=== PATIENT | female | born 1985 | race Caucasian/White ===

== ENCOUNTER 2018-06-27 15:12 | Observation (INO) | payer BC ==
[2018-06-27] MEDS ORDERED: IV RINGERS,LACTATED 1000ML 1,000 ML IV SCH (16:31)
[2018-06-27 16:40] LABS: BILIRUBIN,URINE NEGATIVE (NEG); CLARITY,URINE CLOUDY; COLOR,URINE YELLOW; NITRITE,URINE NEGATIVE (NEG); PROTEIN,URINE 30 mg/dL (NEG-TRACE); UROBILINOGEN,URINE 0.2 mg/dL (0.2 mg/dL)
[2018-06-27 16:49] LABS: BACTERIA,URINE MANY /HPF (0-FEW); RBC,URINE TNTC /HPF (0-2); SQUAMOUS EPITHELIAL CELL,UR MANY /LPF
== END 2018-06-27 17:30 | disposition home or self-care (01) ==
LOC: 3 SO LND 15:12
PROVIDERS: ADMIT Obstetrics & Gynecology; ATTEND Obstetrics & Gynecology
DX: O46.93 Antepartum hemorrhage, unspecified, third trimester (principal); Z3A.39 39 weeks gestation of pregnancy
CPT/HCPCS: 81001; G0378; G0379; 87086

== ENCOUNTER 2018-08-16 16:39 | Observation (INO) | payer BC ==
[2018-08-16 17:02] LABS: BILIRUBIN,URINE NEGATIVE (NEG); CLARITY,URINE CLEAR; COLOR,URINE YELLOW; NITRITE,URINE NEGATIVE (NEG); PROTEIN,URINE NEGATIVE (NEG-TRACE); UROBILINOGEN,URINE 0.2 mg/dL (0.2 mg/dL)
[2018-08-16 17:48] LABS: BASO # 0.1 x10^3/uL (0.0-0.2); BASO % 1 % (0-3); EOS # 0.3 x10^3/uL (0.0-0.7); EOS % 2 % (0-3); HEMATOCRIT 36.5 % (36.0-47.0); HEMOGLOBIN 12.6 g/dL (12.0-15.5); LYMPH # 2.2 x10^3/uL (1.0-4.8); LYMPH % 18 % (24-48); MEAN CORPUSCULAR HEMOGLOBIN 32 pg (25-35); MEAN CORPUSCULAR HGB CONC 34 g/dL (31-37); MEAN CORPUSCULAR VOLUME 91 fL (79-100); MONO % 8 % (0-9); NEUT # 9.1 x10^3uL (1.8-7.7); NEUT % 71 % (31-73); PLATELET COUNT 224 x10^3/uL (140-400); WHITE BLOOD COUNT 12.8 x10^3/uL (4.0-11.0)
[2018-08-16 18:07] LABS: ALBUMIN 2.5 g/dL (3.4-5.0); ALBUMIN/GLOBULIN RATIO 0.6 (1.0-1.7); CALCIUM 8.7 mg/dL (8.5-10.1); CREATININE 0.8 mg/dL (0.6-1.0); GFR 83.7; POTASSIUM 3.8 mmol/L (3.5-5.1); TOTAL BILIRUBIN 0.4 mg/dL (0.2-1.0); TOTAL PROTEIN 6.7 g/dL (6.4-8.2); URIC ACID 3.4 mg/dL (2.6-6.0)
[2018-08-17 18:15] LABS: UR PROTEIN RD 10.3 mg/dL (Not Estab.)
== END 2018-08-16 16:55 | disposition home or self-care (01) ==
LOC: 3 SO LND 16:39
PROVIDERS: ADMIT Obstetrics & Gynecology; ATTEND Obstetrics & Gynecology
DX: O36.8130 Decreased fetal movements, third trimester, not applicable or unspecified (principal); O12.03 Gestational edema, third trimester; Z3A.36 36 weeks gestation of pregnancy
CPT/HCPCS: 36415; 80053; 81003; 82570; 84156; 84550; 85025; G0379

== ENCOUNTER → 2018-08-17 | Outpatient (CLI) | payer BC ==
[2018-08-18 18:16] LABS: TOTAL SERUM CREATININE 0.64 mg/dL (0.57-1.00); UR PROTEIN 11.1 mg/dL (Not Estab.)
== END | disposition home or self-care (01) ==
LOC: LAB 17:32
PROVIDERS: ATTEND Obstetrics & Gynecology
DX: I10 Essential (primary) hypertension (principal)
CPT/HCPCS: 36415; 82575; 84156